=== PATIENT | female | born 1975 | race Caucasian/White ===

== ENCOUNTER 2020-03-11 12:50 | Emergency (ER) | payer OTHER ==
[~2020-03-11 12:50] MED LIST: CHOLECAL DF 951 EACH PO; CLARITIN10 MG PO; CYMBALTA 30MG C30 MG PO; DIFLUCAN 100MG100 MG PO; INTRINSI B12-F1 EACH PO; LAMICTAL100 MG PO; LOPRESSOR25 MG PO; LOVAZA1 GM PO; METFORMIN HCL500 MG PO; ONDANSETRON HCL4 MG PO; PERCOCET 5-3251 EACH PO; PHENERGAN25 M1 PO; PRILOSEC20 MG PO; REQUIP1 MG PO; VENTOLIN HFA IN18 GM INH
[2020-03-11] MEDS ORDERED: BACTRIM DS TAB1 EACH PO (15:13)
== END 2020-03-11 15:25 | disposition home or self-care (01) ==
LOC: FER 12:50
DX: L02.214 Cutaneous abscess of groin (principal); I10 Essential (primary) hypertension; F17.200 Nicotine dependence, unspecified, uncomplicated; Z90.49 Acquired absence of other specified parts of digestive tract; Z98.84 Bariatric surgery status; Z98.890 Other specified postprocedural states; Z87.42 Personal history of other diseases of the female genital tract; Z79.899 Other long term (current) drug therapy